=== PATIENT | female | born 1980 | race Caucasian/White ===

== ENCOUNTER 2023-06-13 06:42 | Day surgery (SDC) | payer MEDICAID ==
[2023-06-13] MEDS ORDERED: Bupivacaine 0.5% 50 ML MDV ONE (07:11)
[2023-06-13] MEDS ORDERED: Lidocaine 1% with EPINEPHrine 1:100,000 50 ML MDV ONE (07:11)
[2023-06-13] MEDS ORDERED: Midazolam 1 MG/ML 2 ML SDV ONE (07:24)
[2023-06-13] MEDS ORDERED: Propofol 200 MG/20 ML SDV ONE ×4 (07:24→09:27)
[2023-06-13] MEDS ORDERED: fentaNYL 100 MCG/2 ML SDV ONE (07:24)
[2023-06-13] MEDS ORDERED: Sodium Chloride 0.9% 1,000 ML IV SCH (08:00)
[2023-06-13] MEDS ORDERED: ceFAZolin 2 GM in Premix Bag 1 BAG IV ONE (08:45)
== END 2023-06-13 11:17 | disposition home or self-care (01) ==
LOC: JP.SDS 06:42
PROVIDERS: ATTEND Surgery
DX: M79.5 Residual foreign body in soft tissue (principal); F32.A Depression, unspecified
CPT/HCPCS: 27087; 76000; J0690; J2250; J2704; J3010; J3490; J7030

== ENCOUNTER 2024-08-13 12:15 | Emergency (ER) | payer MEDICAID ==
[2024-08-13 13:42] LABS: BASOPHILS ABSOLUTE AUTO 0.04 K/uL (0.00-0.10); BASOPHILS PERCENT AUTO 0.3 % (0.1-1.3); EOSINOPHILS PERCENT AUTO 0.2 % (0.0-5.4); HEMATOCRIT 37.9 % (34.3-46.0); HEMOGLOBIN 12.6 g/dL (11.2-15.5); IMMATURE GRAN ABSOLUTE AUTO 0.03 K/uL (0.00-0.23); IMMATURE GRAN PERCENT AUTO 0.3 % (0.0-0.7); LYMPHOCYTES PERCENT AUTO 21.8 % (11.4-47.7); MEAN CORPUSCULAR HEMOGLOBIN 28.6 pg (31.6-35.5); MEAN CORPUSCULAR HGB CONC 33.2 g/dL (31.6-35.5); MEAN CORPUSCULAR VOLUME 85.9 fL (81.4-99.0); MONOCYTES ABSOLUTE AUTO 0.58 K/uL (0.20-0.90); MONOCYTES PERCENT AUTO 4.9 % (3.3-12.6); NEUTROPHILS ABSOLUTE AUTO 8.66 K/uL (1.0-7.6); NEUTROPHILS PERCENT AUTO 72.5 % (40.0-78.1); PLATELET COUNT,PLT 323 K/uL (130-375); RED BLOOD CELL COUNT 4.41 M/uL (3.77-5.24); WHITE BLOOD CELL COUNT,WBC 11.9 K/uL (3.2-11.0)
[2024-08-13 13:43] LABS: EOSINOPHILS ABSOLUTE AUTO 0.02 K/uL (0.00-0.40)
[2024-08-13] MEDS: LORazepam 1 MG Tab PO ONE (13:50)
[2024-08-13 13:59] LABS: ANION GAP 7.6 mmol/L (5.0-14.0); CALCIUM 9.3 mg/dL (8.5-10.1); CREATININE 0.8 mg/dL (0.6-1.0); EST CRCL DRUG DOSING (CG) 72.16 mL/min; POTASSIUM,K 3.9 mmol/L (3.6-5.2)
[2024-08-13 14:30] LABS: AMPHETAMINES SCREEN, URINE NEGATIVE (NEGATIVE); BARBITURATE SCREEN,URINE NEGATIVE (NEGATIVE); BENZODIAZEPINES SCREEN,URINE PRESUMPTIVE POSITIVE (NEGATIVE); METHADONE SCREEN, URINE NEGATIVE (NEGATIVE); METHAMPHETAMINES SCREEN, URINE NEGATIVE (NEGATIVE); OXYCODONE SCREEN,URINE NEGATIVE (NEGATIVE); PROPOXYPHENE SCREEN,URINE NEGATIVE (NEGATIVE); THC SCREEN,URINE 50 NG/ML NEGATIVE (NEGATIVE)
[2024-08-13] MEDS: Ibuprofen 600 MG Tab PO ONE (16:48)
[2024-08-13] MEDS: Nicotine 21 MG/24 Hr Patch TRDERM ONE (19:08)
== END 2024-08-14 02:08 ==
LOC: JP.ED 12:15
DX: R45.851 Suicidal ideations (principal); F17.210 Nicotine dependence, cigarettes, uncomplicated; Z86.16 Personal history of COVID-19
CPT/HCPCS: 36415; 80048; 80305; 80307; 81025; 85025; 87635; 99285; A9270; U0002